=== PATIENT | male | born 1970 | race African-American/Black ===

== ENCOUNTER 2016-04-12 19:49 | Emergency (ER) | payer OTHER ==
[~2016-04-12] VITALS: Ht 167.6 cm; Wt 120.5 kg
[2016-04-12 19:57] VITALS: BP 179/120; PULSE 87; RESP 15; O2SAT 95
[2016-04-12] MEDS ORDERED: Lidocaine-Epi-Tetracaine Solution 3 mL Syringe TOPICAL ONE (20:55)
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
== END 2016-04-12 21:00 | disposition left against medical advice (07) ==
LOC: SED 19:49
DX: T23.322A Burn of third degree of single left finger (nail) except thumb, initial encounter (principal); T23.021A Burn of unspecified degree of single right finger (nail) except thumb, initial encounter; T31.0 Burns involving less than 10% of body surface; X10.2XXA Contact with fats and cooking oils, initial encounter; Y93.89 Activity, other specified; Y92.89 Other specified places as the place of occurrence of the external cause; Y99.8 Other external cause status; Z53.21 Procedure and treatment not carried out due to patient leaving prior to being seen by health care provider